=== PATIENT | female | born 2005 | race Hispanic/Latino ===

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

== ENCOUNTER 2023-08-02 13:19 | Emergency (ER) | payer OTHER ==
[~2023-08-02] VITALS: Ht 152.4 cm; Wt 48.6 kg
[~2023-08-02 13:19] MED LIST changes: +PRENATAL VITAM1 EACH PO
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
[2023-08-02 15:37] VITALS: BP 96/72
== END 2023-08-02 15:36 | disposition home or self-care (01) ==
LOC: ED 13:19
DX: S16.1XXA Strain of muscle, fascia and tendon at neck level, initial encounter (principal); S50.11XA Contusion of right forearm, initial encounter; S09.90XA Unspecified injury of head, initial encounter; V48.6XXA Car passenger injured in noncollision transport accident in traffic accident, initial encounter
CPT/HCPCS: 70450; 72100; 72125; 73080; 84703; 99284-25; A9270

== ENCOUNTER 2023-11-16 13:22 | Emergency (ER) | payer OTHER ==
[~2023-11-16] VITALS: Ht 152.4 cm; Wt 47.5 kg
[2023-11-16 13:39] LABS: BILIRUBIN, URINE POSITIVE (negative); BLOOD/HGB, URINE NEGATIVE (Negative); KETONE, URINE NEGATIVE (Negative); LEUK ESTERASE, URINE NEGATIVE (negative); NITRITE, URINE NEGATIVE (negative)
[2023-11-16] MEDS ORDERED: KETOROLAC TROMETHAMINE 15 MG/ML VIAL IV ONE (13:45)
[2023-11-16] MEDS ORDERED: ondansetron HCL 4 MG/2 ML VIAL IV PRN (13:45)
[2023-11-16 14:15] LABS: BASOPHILS 0.3 % (0-2); EOSINOPHILS 0.4 % (0-6); HEMATOCRIT 35.8 % (35.0-50.0); LYMPHOCYTES 35.6 % (24-44); MCH 30.1 (27-36); MCHC 33.6 g/dl (30-36); MCV 89.6 fl (81-99); MONOCYTES 7.3 % (0-12); NEUTROPHILS 56.4 % (39-80); PLATELET COUNT 162 K/uL (140-440); RDW 15.1 (10.5-15.0)
[2023-11-16 14:41] LABS: ALBUMIN 3.5 g/dL (3.4-5.0); ANION GAP 9.6 (7-21); BILIRUBIN, TOTAL 0.5 ng/dL (0.2-1.0); BUN/CREATININE RATIO 15.38 (6.0-28.6); CREATININE, SERUM 0.78 mg/dL (0.55-1.02); POTASSIUM 3.6 mmol/L (3.5-5.1)
[2023-11-16 15:35] VITALS: BP 90/61
== END 2023-11-16 15:35 | disposition home or self-care (01) ==
LOC: ED 13:22
PROVIDERS: Emergency Medicine
DX: R10.31 Right lower quadrant pain (principal)
CPT/HCPCS: 36415; 80053; 81003; 84703; 85025; 96374; 99284-25; J1885

== ENCOUNTER 2024-02-25 09:05 | Emergency (ER) | payer OTHER ==
[~2024-02-25] VITALS: Ht 160 cm; Wt 45.0 kg
[~2024-02-25 09:05] MED LIST changes: +PRENATAL VITAM1 EAC5 PO; +PROCHLORPERAZIN10 MG PO
[2024-02-25] MEDS ORDERED: SODIUM CHLORIDE 0.9% 1,000 ML IV PRN (09:45)
[2024-02-25 10:16] LABS: BASOPHILS 0.4 % (0-2); EOSINOPHILS 0.7 % (0-6); HEMATOCRIT 34.9 % (35.0-50.0); HEMOGLOBIN 11.8 g/dL (12.0-18.0); LYMPHOCYTES 20.9 % (24-44); MCH 30.6 (27-36); MCHC 33.9 g/dl (30-36); MCV 90.4 fl (81-99); MONOCYTES 5.3 % (0-12); NEUTROPHILS 72.7 % (39-80); PLATELET COUNT 174 K/uL (140-440); RBC 3.86 M/ul (4.3-5.7); RDW 15.9 (10.5-15.0)
[2024-02-25 10:34] LABS: BILIRUBIN, URINE NEGATIVE (negative); BLOOD/HGB, URINE NEGATIVE (Negative); KETONE, URINE NEGATIVE (Negative); LEUK ESTERASE, URINE NEGATIVE (negative); NITRITE, URINE NEGATIVE (negative); PH, URINE 8.5 (5-7)
[2024-02-25 10:43] LABS: ABO O; RH POSITIVE
[2024-02-25 10:52] LABS: ALBUMIN 3.3 g/dL (3.4-5.0); ALBUMIN/GLOBULIN RATIO 0.94 (1.1-2.4); ANION GAP 13.9 (7-21); BILIRUBIN, TOTAL 0.6 ng/dL (0.2-1.0); BUN/CREATININE RATIO 13.55 (6.0-28.6); CALCIUM 8.5 mg/dL (8.5-10.1); CREATININE, SERUM 0.59 mg/dL (0.55-1.02); POTASSIUM 3.9 mmol/L (3.5-5.1); PROTEIN, TOTAL 6.8 g/dL (6.4-8.2)
[2024-02-25] MEDS ORDERED: ondansetron HCL 4 MG/2 ML VIAL IV ONE (11:15)
[2024-02-25 11:31] VITALS: BP 91/54
== END 2024-02-25 11:31 | disposition home or self-care (01) ==
LOC: ED 09:05
PROVIDERS: Emergency Medicine
DX: O21.0 Mild hyperemesis gravidarum (principal); Z3A.01 Less than 8 weeks gestation of pregnancy; Z79.899 Other long term (current) drug therapy
CPT/HCPCS: 36415; 80053; 81003; 84702; 85025; 86900; 86901; 96374; 99284-25; J2405; J7030

== ENCOUNTER 2024-02-27 10:15 | Emergency (ER) | payer OTHER ==
[~2024-02-27] VITALS: Ht 160 cm; Wt 44.9 kg
[2024-02-27 10:37] LABS: BILIRUBIN, URINE NEGATIVE (negative); BLOOD/HGB, URINE NEGATIVE (Negative); KETONE, URINE NEGATIVE (Negative); LEUK ESTERASE, URINE NEGATIVE (negative); NITRITE, URINE NEGATIVE (negative); PH, URINE 7.5 (5-7)
[2024-02-27 11:09] LABS: ABO O
[2024-02-27 11:10] LABS: RH POSITIVE
[2024-02-27 11:47] VITALS: BP 90/50
== END 2024-02-27 11:48 | disposition home or self-care (01) ==
LOC: ED 10:15
PROVIDERS: Internal Medicine
DX: O46.8X1 Other antepartum hemorrhage, first trimester (principal); Z3A.01 Less than 8 weeks gestation of pregnancy; Z79.899 Other long term (current) drug therapy
CPT/HCPCS: 36415; 76801; 76817; 81003; 84702; 86900; 86901; 99284-25

== ENCOUNTER 2024-04-17 17:23 | Emergency (ER) | payer OTHER ==
[~2024-04-17] VITALS: Ht 160 cm; Wt 46.9 kg
[2024-04-17 18:06] LABS: BILIRUBIN, URINE NEGATIVE (negative); BLOOD/HGB, URINE LARGE (Negative); KETONE, URINE NEGATIVE (Negative); LEUK ESTERASE, URINE NEGATIVE (negative); NITRITE, URINE NEGATIVE (negative)
[2024-04-17 18:13] LABS: EPITHELIAL CELLS, URINE SQUAMOUS 1+ /lpf (0-1+); RED BLOOD CELLS, URINE 41-50 /hpf (0-5)
[2024-04-17 18:14] LABS: BACTERIA, URINE RARE /hpf (negative); CASTS, URINE NONE SEEN \\lpf; COLLECTION TYPE, URINE CLEAN CATCH; CRYSTALS, URINE NONE SEEN (0-1+); REFLEX CULTURE, URINE No (No)
[2024-04-17 18:22] LABS: BASOPHILS 0.4 % (0-2); EOSINOPHILS 0.3 % (0-6); HEMATOCRIT 35.4 % (35.0-50.0); LYMPHOCYTES 21.9 % (24-44); MCH 31.5 (27-36); MCV 92.5 fl (81-99); NEUTROPHILS 72.4 % (39-80); PLATELET COUNT 189 K/uL (140-440); RBC 3.82 M/ul (4.3-5.7); RDW 15.4 (10.5-15.0)
[2024-04-17] MEDS ORDERED: MORPHINE SULFATE 4 MG/ML VIAL IV ONE (19:00)
[2024-04-17 19:07] LABS: ALBUMIN 3.1 g/dL (3.4-5.0); ALBUMIN/GLOBULIN RATIO 0.82 (1.1-2.4); ANION GAP 13.5 (7-21); BILIRUBIN, TOTAL 0.4 ng/dL (0.2-1.0); BUN/CREATININE RATIO 11.11 (6.0-28.6); CALCIUM 8.3 mg/dL (8.5-10.1); CREATININE, SERUM 0.63 mg/dL (0.55-1.02); POTASSIUM 3.5 mmol/L (3.5-5.1); PROTEIN, TOTAL 6.9 g/dL (6.4-8.2)
[2024-04-17] MEDS ORDERED: HYDROCODON-ACE1 EA10 PO (19:19)
[2024-04-17] MEDS ORDERED: ONDANSETRON ODT8 MG PO (19:19)
[2024-04-17] MEDS ORDERED: ONDANSETRON 4 MG HOME.PACK SL ONE (19:30)
[2024-04-17] MEDS ORDERED: HYDROCODONE BIT/ACETAMINOPHEN 5/325 MG 1 TAB HOME.PACK PO ONE (19:30)
[2024-04-17 19:39] VITALS: BP 00/65
== END 2024-04-17 19:48 | disposition home or self-care (01) ==
LOC: ED 17:23
PROVIDERS: Family Medicine
DX: O20.0 Threatened abortion (principal); O41.8X20 Other specified disorders of amniotic fluid and membranes, second trimester, not applicable or unspecified; Z3A.14 14 weeks gestation of pregnancy; Z79.899 Other long term (current) drug therapy
CPT/HCPCS: 36415; 76815; 80053; 81001; 84702; 85025; 96374; 99284-25; A9270; J2270

== ENCOUNTER 2024-10-11 13:53 | Inpatient (IN) | payer OTHER ==
[~2024-10-11] VITALS: Ht 154.9 cm; Wt 67.1 kg
[~2024-10-11 13:53] MED LIST changes: +HYDROCODON-ACE1 EA10 PO; +ONDANSETRON ODT8 MG PO
[2024-10-12] MEDS ORDERED: LACTATED RINGER'S 1,000 ML IV SCH
[2024-10-12] MEDS ORDERED: CALCIUM CARBONATE 500 MG CHEW PO PRN
[2024-10-12] MEDS ORDERED: miSOPROStoL 25 MCG TAB PV SCH
[2024-10-12] MEDS ORDERED: OXYTOCIN/DEXTROSE 5% 20 UNITS/100 ML BAG IV SCH (00:15)
[2024-10-12 01:06] LABS: AMPHETAMINES, URINE NEGATIVE (NEGATIVE); BARBITURATES, URINE NEGATIVE (NEGATIVE); BENZODIAZEPINE, URINE NEGATIVE (NEGATIVE); BUPRENORPHINE, URINE NEGATIVE (NEGATIVE); CANNABINOID, URINE POSITIVE (NEGATIVE); COCAINE, URINE NEGATIVE (NEGATIVE); ECSTASY, URINE NEGATIVE (NEGATIVE); FENTANYL, URINE NEGATIVE (NEGATIVE); METHADONE, URINE NEGATIVE (NEGATIVE); OPIATES, URINE NEGATIVE (NEGATIVE); OXYCODONE, URINE NEGATIVE (NEGATIVE); PHENCYCLIDINE, URINE NEGATIVE (NEGATIVE)
[2024-10-12 01:17] VITALS: BP 107/62
[2024-10-12 01:18] LABS: HEMATOCRIT 32.4 % (35.0-50.0); HEMOGLOBIN 10.9 g/dL (12.0-18.0); MCH 30.3 (27-36); MCHC 33.7 g/dl (30-36); MCV 89.8 fl (81-99); RBC 3.6 M/ul (4.3-5.7)
[2024-10-12 01:53] LABS: ABO O; ANTIBODY SCREEN NEGATIVE; RH POSITIVE
[2024-10-12] MEDS ORDERED: ondansetron HCL 4 MG/2 ML VIAL IV PRN (09:30)
[2024-10-12] MEDS ORDERED: LACTATED RINGER'S 500 ML IV PRN (10:30)
[2024-10-12] MEDS ORDERED: ROPIVACAINE 0.2% 200 ML BAG ONE (10:30)
[2024-10-12] MEDS ORDERED: fentaNYL citrate 100 MCG/2 ML VIAL ONE (10:30)
[2024-10-12] MEDS ORDERED: ePHEDrine sulfate 5 MG/ML SYRINGE IV PRN (10:30)
[2024-10-12] MEDS ORDERED: LACTATED RINGER'S 2,000 ML IV ONE (10:30)
[2024-10-12] MEDS ORDERED: ROPIVACAINE 0.2% 200 ML BAG EPIDURAL SCH (10:30)
[2024-10-12] MEDS ORDERED: ePHEDrine KIT FOR FBC IV ONE (10:58)
--- NOTE | 2024-10-12 12:26 | PR ---
[facility] [address] [place], [place] [address] Signed Progress Notes IP Datetime Report Generated by GERMAN: 10/12/2024 12:26 PROGRESS NOTES: [id number] Impression: Normal Progression of Labor Procedures: Artificial ROM; Sterile Vag Exam Plan: Continue Present Management; Anticipate Vaginal Delivery VITAL SIGNS: [id number] Vital Signs: Reviewed; Within Normal Limits EXAM: [id number] Dilatation: 7.0 Effacement: 90 Station: -1 Contractions: q2-3 min MEMBRANES: [id number] Pooling: Negative Membranes Status: Ruptured FETUS A: [id number] FHR Baseline: 120 Variability: Moderate 6-25bpm Accelerations: 15X15 Decelerations: Variable FHR Category: Category I Presentation: Vertex Comments on Fetus A: Reassuring for dates FETUS B: [id number] Signing Physician: Juanita Walton MD Copies: ~ *Electronically Signed* 10/12/24 1226 JUANITA WALTON MD PATIENT NAME: RICHA NEWTON PROGRESS NOTE DATE OF : 03 PHYSICIAN: JUANITA WALTON MD RPT #: [id number] REPORT IS CONFIDENTIAL AND NOT TO BE RELEASED WITHOUT AUTHORIZATION
[2024-10-12] MEDS ORDERED: METOCLOPRAMIDE HCL 10 MG/2 ML SDV IV PRN (12:30)
[2024-10-12] MEDS ORDERED: OXYTOCIN/0.9 % SODIUM CHLORIDE 500 ML IV ONE (14:01)
[2024-10-12] MEDS ORDERED: MAGNESIUM HYDROXIDE 30 ML UDC PO PRN (14:45)
[2024-10-12] MEDS ORDERED: MAGNESIUM HYDROXIDE/AL HYDROX 30 ML CUP PO PRN ×2 (14:45)
[2024-10-12] MEDS ORDERED: WITCH HAZEL/GLYCERIN 1 EA PAD TOP PRN (14:45)
[2024-10-12] MEDS ORDERED: HYDROCORTISONE ACETATE 25 MG SUPP PR PRN (14:45)
[2024-10-12] MEDS ORDERED: LIDOCAINE 2% VISCOUS 6 ML SYR TOP ONE (14:45)
[2024-10-12] MEDS ORDERED: IBUPROFEN 600 MG TAB PO PRN (14:45)
[2024-10-12] MEDS ORDERED: BENZOCAINE 60 ML AEROSOL TOP PRN (14:45)
[2024-10-12] MEDS ORDERED: OXYTOCIN/0.9 % SODIUM CHLORIDE 500 ML IV SCH (14:45)
[2024-10-12] MEDS ORDERED: ACETAMINOPHEN 325 MG TAB PO PRN (14:45)
[2024-10-12] MEDS ORDERED: SENNOSIDES/DOCUSATE 1 EA TAB PO SCH (21:00)
== END 2024-10-13 16:20 | disposition home or self-care (01) | DRG 807 ==
LOC: FBC 10-12 00:01
PROVIDERS: ADMIT Student in an Organized Health Care Education/Training Program; ATTEND Student in an Organized Health Care Education/Training Program
PROC: 10E0XZZ Delivery of Products of Conception, External Approach (ICD-10-PCS; principal; 2024-10-12)
PROC: 10907ZC Drainage of Amniotic Fluid, Therapeutic from Products of Conception, Via Natural or Artificial Opening (ICD-10-PCS; 2024-10-12)
PROC: 3E0P7VZ Introduction of Hormone into Female Reproductive, Via Natural or Artificial Opening (ICD-10-PCS; 2024-10-12)
DX: O99.334 Smoking (tobacco) complicating childbirth (principal); Z37.0 Single live birth; F17.290 Nicotine dependence, other tobacco product, uncomplicated; Z3A.39 39 weeks gestation of pregnancy; O99.344 Other mental disorders complicating childbirth; F41.9 Anxiety disorder, unspecified; F32.A Depression, unspecified; F43.10 Post-traumatic stress disorder, unspecified
CPT/HCPCS: 01960; 36415; 80307; 85027; 86850; 86900; 86901; A9270; J2405; J2795; J3010

== ENCOUNTER 2025-05-17 15:00 | Emergency (ER) | payer OTHER ==
[~2025-05-17] VITALS: Ht 152.4 cm; Wt 57.0 kg
[2025-05-17] MEDS ORDERED: KETOROLAC TROMETHAMINE 15 MG/ML VIAL IV ONE (16:15)
[2025-05-17] MEDS ORDERED: SODIUM CHLORIDE 0.9% 1,000 ML IV ONE (16:15)
[2025-05-17] MEDS ORDERED: LOPERAMIDE HCL 2 MG CAP PO ONE (16:15)
[2025-05-17 16:28] LABS: BASOPHILS 0.2 % (0.1-1.2); EOSINOPHILS 0.3 % (0.7-5.8); LYMPHOCYTES 10.4 % (19.3-51.7); MCH 29.9 PG (25.6-32.2); MCHC 33.3 g/dL (32.2-35.5); MCV 89.6 fL (79.4-94.8); MONOCYTES 4.4 % (4.7-12.5); NEUTROPHILS 84.5 % (34.0-71.1); RBC 4.52 M/uL (3.93-5.22)
[2025-05-17 16:49] LABS: ALT (SGPT) 13.0 U/L (14-59); AST (SGOT) 10.0 U/L (15-37); GLOMERULAR FILTRATION RATE,EST 108.0 mL/min (>60); PROTEIN, TOTAL 7.7 g/dL (6.4-8.2); UREA NITROGEN 12.0 mg/dL (7-18)
[2025-05-17] MEDS ORDERED: ONDANSETRON ODT4 MG PO (17:26)
[2025-05-17] MEDS ORDERED: DICYCLOMINE HCL20 MG PO (17:26)
[2025-05-17 17:35] VITALS: BP 102/67
== END 2025-05-17 17:33 | disposition home or self-care (01) ==
LOC: ED 15:00
PROVIDERS: Emergency Medicine
DX: K52.9 Noninfective gastroenteritis and colitis, unspecified (principal); F17.200 Nicotine dependence, unspecified, uncomplicated
CPT/HCPCS: 36415; 80053; 83690; 84703; 85025; 96374; 96375; 99284-25; J1885; J2405; J7030

== ENCOUNTER 2025-09-26 09:04 | Emergency (ER) | payer OTHER ==
[~2025-09-26] VITALS: Ht 152.4 cm; Wt 58.0 kg
[~2025-09-26 09:04] MED LIST changes: +DICYCLOMINE HCL20 MG PO
[2025-09-26] MEDS ORDERED: ASPIRIN 81 MG CHEW PO ONE (09:15)
[2025-09-26 09:28] LABS: BASOPHILS 0.1 % (0.1-1.2); EOSINOPHILS 0.8 % (0.7-5.8); LYMPHOCYTES 45.2 % (19.3-51.7); MCH 30.4 PG (25.6-32.2); MCHC 34.1 g/dL (32.2-35.5); MCV 89.2 fL (79.4-94.8); MONOCYTES 5.5 % (4.7-12.5); NEUTROPHILS 48.3 % (34.0-71.1); RBC 4.61 M/uL (3.93-5.22)
[2025-09-26 09:54] LABS: ALT (SGPT) 18 U/L (14-59); AST (SGOT) 13 U/L (15-37); GLOMERULAR FILTRATION RATE,EST 114 mL/min (>60); PROTEIN, TOTAL 8.3 g/dL (6.4-8.2); UREA NITROGEN 13 mg/dL (7-18)
[2025-09-26] MEDS ORDERED: LIDOCAINE & ANTACID 35 ML BTL PO ONE (10:30)
[2025-09-26] MEDS ORDERED: PEPCID20 MG PO (11:10)
[2025-09-26 11:26] VITALS: BP 112/76
--- NOTE | 2025-09-30 18:58 | EKG ---
[facility] [address] [facility] [place] [address] Signed Sinus bradycardia Otherwise normal ECG No previous ECGs available Confirmed by Lorraine Gomez MD () on 09/30/2025 6:57:56 PM Electronically Signed By: LORRAINE GOMEZ MD 09/30/25 1858 PATIENT NAME: RICHA NEWTON Electrocardiogram DATE OF : 03 PHYSICIAN: LORRAINE GOMEZ MD REPORT #: [id number] REPORT IS CONFIDENTIAL AND NOT TO BE RELEASED WITHOUT AUTHORIZATION
== END 2025-09-26 11:24 | disposition home or self-care (01) ==
LOC: ED 09:04
PROVIDERS: Emergency Medicine
DX: R10.13 Epigastric pain (principal); F17.200 Nicotine dependence, unspecified, uncomplicated
CPT/HCPCS: 36415; 71045; 76705; 80053; 83690; 83735; 84484; 85025; 93005; 93010; 96374; 99284-25; J2405